=== PATIENT | female | born 1945 | race Caucasian/White ===

== ENCOUNTER → 2017-09-08 10:01 | Outpatient (CLI) | payer MEDICARE, SELFPAY ==
--- NOTE | 2017-09-08 10:05 | RAD_ITS ---
STUDY: X-RAY - RIGHT KNEE REASON FOR EXAM: Female, 72 years old. Pain TECHNIQUE: Three view(s) of the knee were obtained. COMPARISON: None. FINDINGS: The distal femur is unremarkable. The proximal tibia is unremarkable. There is mild narrowing of the medial femorotibial compartment. Normal lateral femorotibial compartment. Normal patellofemoral articulation. There is minimal fullness above the patella. There is a small calcification adjacent to the medial femoral condyle which can be seen after prior injury to the medial collateral ligament. RAD/Knee 3 Views IMPRESSION: There are mild degenerative changes in the medial compartment of the right knee. There is a small joint effusion. Electronically Signed: Yolanda Dumont MD at 22:31 EDT Tel Direct: [phone], Service support ,
== END ==
PROVIDERS: Family Provider Internal Medicine; PCP Internal Medicine; Visit Provider Internal Medicine
DX: M17.11 Unilateral primary osteoarthritis, right knee (principal)
CPT/HCPCS: 73562

== ENCOUNTER 2017-10-01 09:30 | Outpatient (RCR) | payer MEDICARE, SELFPAY ==
--- NOTE | 2017-09-09 11:47 | HP.PTEVAL_ITS ---
Patient's Visit Information STANISLAW ALEMAN is a 72 year old F referred to Physical Therapy by Yvonne Velez with a diagnosis of Right Knee Pain. Date of Evaluation: 09/09/17 Physical Therapist: Nessa Ziegler - Visit Plan Frequency: 2x /Week Duration: 4 Weeks Plan: Focus on LE ROM, strength, and muscular endurnace with functional mobility - modalities PRN - Subjective Subjective: Patient reports the right knee has been bothering her for about a month- no specific injury thinks that she might have bothered it while standing on a bank using a push mower. Pain is located on the medial side of the knee along the posterior aspect and into thigh area both anterior and posterior. Saw MD yesterday and gave her an injection in the thigh and had an x-ray taken. The x-ray showed that she has mild OA in the medial compartment of the knee. Was taking Tylenol which gave her a kidney infection. Describes the knee pain as ?just painful?. Worst: 01/27 Agg: everything- rolling over in bed, walking, stairs anything Eases: heating pad Best: 11/27. First time with knee pain/ problems. Has had back pain before and saw a chiropractor and it made it better. Does have stairs to do laundry in the basement. No N/T in the toes but does have numbness in the anterior quad muscle. PMHx: high cholesterol Meds : D3 50,000 units. - Objective Posture: FH, RS, Increased kyphosis. Gait: antalgic- poor heel/toe pattern secondary to poor ROM- decreased stance on the right LE. Stairs:asc/desc 8 stairs recip with 1 HR and uses UE A- poor control. HR/TR: able but reports pulling. SLS: 5 sec then LOB and uses UE for balance. Palpation: tender along superior medial joint line, quad lateral and anterior. ROM: 10-125 degrees with pain at end ranges. Strength: Ankle: 5/5, Knee: 5/5 with pain in available range, Hip: 4/5 throughout with pain IR/ER in sitting. McMurrays: negative, Gapping of the medial joint decreases pain. Flex: hamstring: moderate , gastroc: moderate - Goals Goal 1:: Patient will be I with HEP and progression Goal Time Frame: 4-6 Weeks Goal 2:: Patient will demo 0-125 degrees of ROM with 0/10 pain and no pulling Goal Time Frame: 4-6 Weeks Goal 3:: Patient will ambulate >300 feet with a normalized gait pattern Goal Time Frame: 4-6 Weeks Goal 4:: Patient will asc/desc 8 stairs recip with 1 HR and good control Goal Time Frame: 4-6 Weeks - Rehabilitation Potential Physical Therapy Diagnosis: Patient presents with hypomobility- she has decreased ROM, strength, flexibility and muscular endurance leading to abnormal gait and increased pain with ADL's. Rehabilitation Potential: Fair - Anticipated Interventions Patient/Client Instruction: Educate patient on: Benefits of Fitness Program For the Purpose of:: To increase tolerance to activity/condition/position Therapeutic Exercise to Include: Strength training, Endurance training, Balance training, Body mechanics, Postural training, Flexibilty training, Gait and locomotor training, Dynamic Lumbar Stabilization For the Purpose of:: To improve muscle performance and motor function TENS: Yes Cryotherapy (ice pack, ice massage): Yes Thermo therapy (hot pack): Yes Ultrasound (thermal/non thermal): Yes For the Purpose of:: To decrease pain Thank you for the opportunity to evaluate your patient. For Medicare and Medicare HMO plans, please review the plan of care and approve it. It will need to be FAXED BACK to us at [phone] for Medicare purposes. Please let me know if there are questions or concerns regarding this plan of care. Physician Signature: Date:
--- NOTE | 2017-10-07 10:34 | HP.PTDCSUM_ITS ---
HP - PT D/C Summary It has been my pleasure to treat STANISLAW ALEMAN under orders from Yvonne Velez, for the diagnosis of Right Knee Pain for a total of 4 visit(s). Discharge Date: Please see the following information for a summary of their discharge status. - Subjective Subjective: Patient reports that the pain in her knee is gone- she is happy wtih the results but is unsure if they will last. DOes not feel she needs PT anymore. - Overall Improvement % Improvement: 100 - Objective Objective/Function: Posture: FH, RS, Increased kyphosis. Gait: normal. Stairs: asc/desc 8 stairs recip with 1 HR. HR/TR: able SLS: 10 sec then LOB and uses UE for balance. Palpation: not tender. ROM: 10-125 degrees. Strength: Ankle: 5/5, Knee: 5/5, Hip: 4+/5 throughout. McMurrays: negative, Gapping of the medial joint decreases pain. Flex: hamstring: moderate, gastroc: moderate - Goals Goal 1:: Patient will be I with HEP and progression Goal Progress: Goal Met Goal 2:: Patient will demo 0-125 degrees of ROM with 0/10 pain and no pulling Goal Progress: Goal Met Goal 3:: Patient will ambulate >300 feet with a normalized gait pattern Goal Progress: Goal Met Goal 4:: Patient will asc/desc 8 stairs recip with 1 HR and good control Goal Progress: Goal Met - Plan Plan: Discharge to I HEP - D/C Information If there are questions or concerns regarding this patient's physical therapy, please feel free to call me at [phone]. Thank you for the referral of this patient. Sincerely, Nessa Ziegler
== END 2017-10-01 19:00 | disposition home or self-care (01) ==
LOC: PT 09:30
PROVIDERS: Family Provider Internal Medicine; PCP Internal Medicine; Visit Provider Internal Medicine
DX: M62.89 Other specified disorders of muscle (principal); M76.31 Iliotibial band syndrome, right leg; M25.561 Pain in right knee
CPT/HCPCS: 97035; 97110; 97161

== ENCOUNTER → 2018-03-05 10:18 | Outpatient (CLI) | payer MEDICARE, SELFPAY ==
--- NOTE | 2018-03-05 10:23 | BI_ITS ---
MAMMOGRAPHY - BILATERAL SCREENING REASON FOR EXAM: Female, 72 years old. Routine annual screening examination. PERTINENT HISTORY: Sister with breast cancer. TECHNIQUE: Digital bilateral breast teddy (3D mammographic acquisition) in the CC and MLO projections. 2-D mediolateral oblique (MLO) and craniocaudad (CC) views of both breasts were obtained. CAD: Full Field Digital Mammography with Computer Added Detection was performed. COMPARISON: Comparison is made with prior study dated February 17, 2017 and February 15, 2016. FINDINGS: Breast Composition: The breasts are heterogeneously dense, which may obscure small masses. There are no dominant masses or suspicious calcifications. No other significant abnormalities are identified. There has been no significant change since the prior study. BI/SCREENING MAMM (CAD), BILAT IMPRESSION: Stable bilateral screening mammogram. Yearly follow-up mammogram recommended. (A) ASSESSMENT CATEGORY: BIRADS Category 1: Negative. A letter regarding these results will be sent to the patient by the facility within 30 days. Approximately 10% of breast cancers are not detected by mammography. A normal mammogram should not delay biopsy of a clinically suspicious abnormality. [id number] Electronically Signed: Tawanda Weems MD at 9:35 EST Tel [phone], Service support ,
== END ==
PROVIDERS: Family Provider Internal Medicine; PCP Internal Medicine; Referring Provider Internal Medicine; Visit Provider Internal Medicine
DX: Z12.31 Encounter for screening mammogram for malignant neoplasm of breast (principal)
CPT/HCPCS: 77063; 77067

== ENCOUNTER 2018-06-15 14:00 | Outpatient (RCR) | payer MEDICARE, SELFPAY ==
--- NOTE | 2018-06-15 15:55 | HP.PTEVAL_ITS ---
Patient's Visit Information STANISLAW ALEMAN is a 73 year old F referred to Physical Therapy by Yvonne Velez DO with a diagnosis of R knee bursitis. Date of Evaluation: 04/30/18 Physical Therapist: John Paul Mcqueen DPT - Visit Plan Frequency: 1x/Week Duration: 4-6 Weeks Plan: Start with modalities to reduce symptoms, add in ROM, stretching. Progress to quad/glute med/HS activation and functional strengthening if tolerated. If pt. does not progress I would recommend to follow back up with physician or ortho again. - Subjective Findings: Pt is here today for her initial evaluation with diagnosis of R knee bursitis. Pt. reports having increased R knee pain for ~ 1 year, but did have a period where she was feeling much better. Increases pain: walking, standing, stairs, twisting, driving. Decreases Pain: nothing. Pt. reports haing some mild N/T at her anterior thigh at times. Pt. was recommended to have an MRI by an ortho, but was denies, ~ 6 months ago. Pt. has trialed injections without relief. She did have relief with strengthening exercises previously, but is not having increased pain and exercises seem to make it work. Pt. reports pain at anterior knee, posterior knee, medial popliteal fossa. Pt. reports no sudden weakness in either LE. Pt. did have xrays showing OA in R knee. Pt. is hopeful to reduce symptoms in order to get back to all recreational activiteis without limitations. - Pain R knee Pain Intensity (Out of 10): 4 Pain Intensity Range: 2, 8 - Objective POSTURE: Pt. lacks R TKE, increased L wt. shift. Pt. has slight flexed posture in stance. Pt. has no lumbar lateral shift. PALAPTION: Pt. has increased pain at medial joint line, medial aspect of popliteal fossa. Pt. has no lateral pain. Pt has some pain at pes anserine pain and some pre patellar bursa pain. NEURO: No issues with senstation and DTR bilaterally. Pt. is able to rise on heels and toes without issues. ROM: L Knee 0-0-124deg. R kne 0-5-118deg. Pt. has increased pain with end ranges of R knee ROM. LUMBAR SPINE: min loss throughout without increase in symptoms. Tight HS noted. MMT: LLE- 5/5 throughout no issues. RLE- ankle 5/5 throughout; knee- ext 4/5 incerase NW, flexion 4/5 increase NW, hip- 4/5 throughout NE. Core strength- poor. GAIT: Pt. ambulates with lack pof TKE and increased antalgic pattern during R stance phase. STAIRS: step to pattern throughout with loading LLE only. - Goals Goal 1:: Pt. to be I with HEP. Goal Time Frame: 4-6 Weeks Goal 2:: Pt. to have incerased R knee ROM to 0-0-120deg withotu increase in symptoms. Goal Time Frame: 4-6 Weeks Goal 3:: Pt. to have increased RLE strength by 1/2 grade of all effected muscles. Goal Time Frame: 4-6 Weeks Goal 4:: Pt. to ambulate with normal pattern without incerase in symptoms. Goal Time Frame: 4-6 Weeks Goal 5:: Pt. to negotiate steps without increase in symptoms with reciprocal pattern. Goal Time Frame: 4-6 Weeks - Rehabilitation Potential Physical Therapy Diagnosis: Pt. has signs and symptoms consistent with R knee p ain. Pt. appears to have a meniscal pahtology, but difficulty to differenciate. Pt. does have pain with Freeman and Apley's testing, lacks TKE and pain and posterior medial aspect. Pt. would benefit from PT to increase ROM and increase strength in order to reduce stress applied to R knee with all functional mobility. Rehabilitation Potential: Fair - Anticipated Interventions Patient/Client Instruction: Educate patient on: Condition, Plan of Care, Risk Factors, Benefits of Fitness Program For the Purpose of:: To foster healthy habits, To improve decision making, To facilitate caregiver knowledge, To improve self management, To prevent re- injury, To improve ability to perform tasks related to life management, To improve tolerance to ADL's Therapeutic Exercise to Include: Strength training, Power training, Endurance training, Body mechanics, Postural training, Flexibilty training, Gait and locomotor training For the Purpose of:: To decrease pain, To increase ROM, To improve nutrient delivery to tissue, To increase oxygenation perfusion, To improve muscle performance and motor function, To improve gait and locomotor functions, To decrease soft tissue restriction, To increase flexibility/ROM IF ES: Yes Other electric stimulation: Yes Ultrasound (thermal/non thermal): Yes For the Purpose of:: To decrease pain, To decrease swelling/inflammation, To increase ROM, To improve nutrient delivery to tissue, To increase oxygenation perfusion, To improve muscle performance and motor function Thank you for the opportunity to evaluate your patient. For Medicare and Medicare HMO plans, please review the plan of care and approve it. It will need to be FAXED BACK to us at [phone] for Medicare purposes. For Medicare only, by signing this I certify the plan of care. Please let me know if there are questions or concerns regarding this plan of care. Physician Signature: Date:
--- NOTE | 2018-06-16 10:30 | HP.PTDCSUM ---
HP - PT D/C Summary It has been my pleasure to treat STANISLAW ALEMAN under orders from Yvonne Velez DO, for the diagnosis of R knee bursitis for a total of 5 visit(s). Discharge Date: 06/15/18 Please see the following information for a summary of their discharge status. - Subjective Subjective: Pt. reports I am still feeling sore. I am not sure if it is my back or my knee or just that I am doing a lot more. I am walking, working and doing all these chores taking care of my brother. I am just working so much. Pt. reports not being compliant with her exercises at home due to time constraits. I feel stronger, but the pain is still there. - Pain R knee Pain Intensity (Out of 10): 4 - Overall Improvement % Improvement: 40 - Objective Objective/Function: Pt. reports I am able to do the exercises, but I still have this pain. I do not seem to be making much different with my pain.. ROM- R knee 0-3-118deg. MMT: 4/5 throughout R knee, hip- flexion 4/5, abd 4/5, ext 4+/5 Core strenght- poor+. GAIT: Pt. has improved gait pattern, but continues to have increased soreness during stance phase of gait, but comes and goes. STAIRS reciprocal pattern with 2 HR noted, mild increase in symptoms. - Goals Goal 1:: Pt. to be I with HEP. Goal Progress: Goal Met Goal 2:: Pt. to have incerased R knee ROM to 0-0-120deg withotu increase in symptoms. Goal Progress: Progressing Goal 3:: Pt. to have increased RLE strength by 1/2 grade of all effected muscles. Goal Progress: Goal Met Goal 4:: Pt. to ambulate with normal pattern without incerase in symptoms. Goal Progress: Progressing Goal 5:: Pt. to negotiate steps without increase in symptoms with reciprocal pattern. Goal Progress: Goal Met - Plan Plan: Start with modalities to reduce symptoms, add in ROM, stretching. Progress to quad/glute med/HS activation and functional strengthening if tolerated. If pt. does not progress I would recommend to follow back up with physician or ortho again. - D/C Information Discharge Comments: Pt. was treated with stretching, strengthening, and US. Pt. reports being stronger and walking a little bit better, but is still troubled by her pain. Pt. could have been more consistent with her PT and is dealing with taking care of her brother, but with that being said she is still having increased pain. I would recommend that she return to her physician for re visit with ortho since MRI was recommended, but denied. If there are questions or concerns regarding this patient's physical therapy, please feel free to call me at [phone]. Thank you for the referral of this patient. Sincerely, MINERVA ArmstrongT
== END 2018-06-15 19:00 | disposition home or self-care (01) ==
LOC: PT 14:00
PROVIDERS: Family Provider Internal Medicine; PCP Internal Medicine; Referring Provider Internal Medicine; Visit Provider Internal Medicine
DX: M25.561 Pain in right knee (principal); M54.5 Low back pain
CPT/HCPCS: 97035; 97110; 97161; 97530

== ENCOUNTER → 2018-09-06 12:58 | Outpatient (CLI) | payer MEDICARE, SELFPAY ==
--- NOTE | 2018-09-06 13:05 | RAD_ITS ---
STUDY: X-RAY - RIGHT ANKLE REASON FOR EXAM: Female, 73 years old. Strain injury and medial pain TECHNIQUE: 3 view(s) of the ankle. COMPARISON: None. FINDINGS: Normal visualized distal tibia and fibula. Normal medial and lateral malleoli. Normal tibiotalar articulation and ankle mortise. Normal visualized talus and calcaneus. The visualized subtalar, talonavicular, calcaneocuboid and tarsal articulations are normal. The soft tissue structures are unremarkable. RAD/Ankle min 3 Views IMPRESSION: No acute osseous injury is evident. Electronically Signed: Elfego Borden MD at 14:12 EDT Tel , Service support ,
== END ==
PROVIDERS: Family Provider Internal Medicine; PCP Internal Medicine; Visit Provider Internal Medicine
DX: M25.571 Pain in right ankle and joints of right foot (principal)
CPT/HCPCS: 73610

== ENCOUNTER → 2019-03-10 13:03 | Outpatient (CLI) | payer MEDICARE, SELFPAY ==
--- NOTE | 2019-03-10 13:07 | BD_ITS ---
STUDY: DUAL ENERGY X-RAY ABSORPTIOMETRY / DXA REASON FOR EXAM: Female, 73 years old. Early menopause. Loss of height. TECHNIQUE: Bone Mineral Density (BMD) measurements of lumbar spine and bilateral hips were obtained. COMPARISON: Comparison is made with prior examination dated February 17, 2017. FINDINGS: Lumbar Spine (L1-L4): g/cm2 (0.793) / T-score (-3.2) / Z-score (-1.5) Findings are suggestive of osteoporosis with a high fracture risk. Left Femur Total: g/cm2 (0.640) / T-score (-2.9) / Z-score (-1.1) Left Femoral Neck: g/cm2 (0.608) / T-score (-3.1) / Z-score (-1.1) Right Femur Total: g/cm2 (0.642) / T-score (-2.9) / Z-score (-1.1) Right Femoral Neck: g/cm2 (0.657) / T-score (-2.7) / Z-score (-0.8) The T-Scores on the most recent prior examination were: Lumbar Spine (L1-L4): There has been worsening of bone density since the previous examination. Left Femur Total: which represents a worsening of 6.2%. Right Femur Total: which represents a worsening of 8.7%. BD/Dexa Bone Density Study IMPRESSION: The patient is considered osteoporotic as outlined below according to World David Organization (WHO) criteria with a high fracture risk. There has been worsening of bone density since the previous examination. Reference Information: The T-score is the number of standard deviations above or below the standard which is normal for young adults at their peak bone mineral density. The World Health Organization (WHO) interprets the T-scores as follows: Above -1 Normal bone density Between -1 and -2.5 Osteopenia Equal to / or below -2.5 Osteoporosis As a practical clinical guideline, osteopenia may be graded as follows: Mild -1 through -1.5 Moderate -1.6 through -2.0 Severe -2.1 through -2.4 The Z-score is the number of standard deviations above or below age-matched controls. A Z-score of less than -1.5 would be considered abnormal. References: 1. NIH Osteoporosis and Related Bone Diseases http://www.osteo.org 2. International Society for Clinical Densitometry http://www.iscd.org 3. National Osteoporosis Foundation http://www.nof.org Electronically Signed: Tawanda Weems, at 11:06 EST , Service support ,
--- NOTE | 2019-03-10 13:23 | BI_ITS ---
MAMMOGRAPHY - BILATERAL SCREENING REASON FOR EXAM: Female, 73 years old. Routine annual screening examination. PERTINENT HISTORY: Sister with breast cancer. TECHNIQUE: Digital bilateral breast el (3D mammographic acquisition) in the CC and MLO projections. 2-D mediolateral oblique (MLO) and craniocaudad (CC) views of both breasts were obtained. CAD: Full Field Digital Mammography with Computer Added Detection was performed. COMPARISON: Comparison is made with prior study dated March 05, 2018 and February 17, 2017. FINDINGS: Breast Composition: The breasts are heterogeneously dense, which may obscure small masses. There are no dominant masses or suspicious calcifications. No other significant abnormalities are identified. There has been no significant change since the prior study. BI/SCREEN MAMM (CAD) W/EL BILAT IMPRESSION: Stable bilateral screening mammogram. Yearly follow-up mammogram recommended. (A) ASSESSMENT CATEGORY: BIRADS Category 1: Negative. A letter regarding these results will be sent to the patient by the facility within 30 days. Approximately 10% of breast cancers are not detected by mammography. A normal mammogram should not delay biopsy of a clinically suspicious abnormality. [id number] Electronically Signed: Tawanda Weems, at 14:53 EST , Service support ,
== END ==
PROVIDERS: Family Provider Internal Medicine; PCP Internal Medicine; Referring Provider Internal Medicine; Visit Provider Internal Medicine
DX: M81.0 Age-related osteoporosis without current pathological fracture (principal); Z12.31 Encounter for screening mammogram for malignant neoplasm of breast; Z80.3 Family history of malignant neoplasm of breast
CPT/HCPCS: 77063; 77067; 77080

== ENCOUNTER → 2020-04-10 14:17 | Outpatient (CLI) | payer MEDICARE, SELFPAY ==
--- NOTE | 2020-04-10 14:19 | BI_ITS ---
MAMMOGRAPHY - BILATERAL SCREENING REASON FOR EXAM: Female, 75 years old. Routine annual screening examination. PERTINENT HISTORY: Sister with breast cancer. TECHNIQUE: Digital bilateral breast el (3D mammographic acquisition) in the CC and MLO projections. 2-D mediolateral oblique (MLO) and craniocaudad (CC) views of both breasts were obtained. CAD: Full Field Digital Mammography with Computer Added Detection was performed. COMPARISON: Comparison is made with prior study dated 03/10/2019 and 03/05/2018. FINDINGS: Breast Composition: The breasts are heterogeneously dense, which may obscure small masses. There are no dominant masses or suspicious calcifications. No other significant abnormalities are identified. There has been no significant change since the prior study. BI/SCREEN MAMM (CAD) W/EL BILAT IMPRESSION: Stable bilateral screening mammogram. Yearly follow-up mammogram recommended. (A) ASSESSMENT CATEGORY: BIRADS Category 1: Negative. A letter regarding these results will be sent to the patient by the facility within 30 days. Approximately 10% of breast cancers are not detected by mammography. A normal mammogram should not delay biopsy of a clinically suspicious abnormality. [id number] Electronically Signed: Tawanda Weems, at 15:07 EST , Service support ,
== END ==
PROVIDERS: PCP Internal Medicine; Referring Provider Internal Medicine; Visit Provider Internal Medicine
DX: Z12.31 Encounter for screening mammogram for malignant neoplasm of breast (principal); Z80.3 Family history of malignant neoplasm of breast
CPT/HCPCS: 77063; 77067

== ENCOUNTER 2020-06-21 16:45 | Outpatient (RCR) | payer MEDICARE, SELFPAY ==
[2020-06-21] MEDS: COVID-19 VACC, MRNA(PFIZER)/PF 30 MCG/0.3 ML SYRINGE IM (11:06)
[2020-07-12] MEDS: COVID-19 VACC, MRNA(PFIZER)/PF 30 MCG/0.3 ML SYRINGE IM (10:54)
== END 2020-06-21 23:59 ==
LOC: IMMUN 16:45
PROVIDERS: PCP Internal Medicine; Visit Provider Family Medicine
DX: Z23 Encounter for immunization (principal)
CPT/HCPCS: 0001A; 0002A

== ENCOUNTER → 2021-01-31 | Outpatient (CLI) | payer MEDICARE, SELFPAY ==
[2021-01-31 15:21] LABS: Potassium 4.6 mmol/L (3.5-5.1)
== END | disposition home or self-care (01) ==
LOC: LABSPEC 14:54
PROVIDERS: PCP Internal Medicine; Visit Provider Internal Medicine
DX: E87.5 Hyperkalemia (principal)
CPT/HCPCS: 84132

== ENCOUNTER 2021-06-26 16:24 | Outpatient (CLI) | payer MEDICARE, SELFPAY ==
[2021-06-26 18:08] LABS: BNP,B-Type NATRIURETIC PEPTIDE 114.2 pg/mL (0-100)
== END 2021-06-26 23:59 | disposition home or self-care (01) ==
LOC: LAB 16:25
PROVIDERS: PCP Internal Medicine; Referring Provider Internal Medicine Cardiovascular Disease; Visit Provider Internal Medicine Cardiovascular Disease
DX: R06.00 Dyspnea, unspecified (principal)
CPT/HCPCS: 36415; 83880

== ENCOUNTER 2021-07-16 06:05 | Outpatient (CLI) | payer MEDICARE, SELFPAY ==
--- NOTE | 2021-07-16 11:21 | STRESSREP_ITS ---
Stress Test Report Exercise myocardial perfusion stress test. 76-year-old lady with a history of dyspnea on exertion. Stress protocol: Resting EKG demonstrates sinus bradycardia with a rate of 52 bpm normal intervals are noted resting blood pressure is 164/70 mmHg. The patient exercised according to regular Azam protocol for total duration of 3 minutes. The maximum heart rate attained was 134 bpm which was 94% of max impact at heart rate the maximum workload was 4.6 metabolic equivalents. At rest there were no ST or T wave changes noted suggest ischemia and at peak exercise nonspecific ST changes were noted the test was terminated due to dyspnea. The peak blood pressure was 200/74 mmHg. Myocardial perfusion protocol. 11.7 mCi of technetium 99m sestamibi was injected at rest. The patient exercised according to regular Azam protocol for total duration of 3 minutes. At peak exercise 33.53 mCi of technetium 99m sestamibi was injected stress i mages were obtained stress and rest images were reconstructed and compared in the short axis vertical long horizontal long axis. Gated images were also obtained per Perfusion SPECT analysis: Review of the stress images demonstrate normal uptake of tracer noted in all areas of myocardium the resting images similarly demonstrate normal uptake of tracer noted in all areas of myocardium. No areas of reversibility are noted suggest ischemia. No previous infarct is noted. Gated SPECT analysis: The gated ejection fraction is 79%. Conclusion: Normal exercise myocardial perfusion stress test at a low workload. Preserved ejection fraction.
== END 2021-07-16 23:59 | disposition home or self-care (01) ==
PROVIDERS: PCP Internal Medicine; Referring Provider Internal Medicine Cardiovascular Disease; Visit Provider Internal Medicine Cardiovascular Disease
DX: R06.09 Other forms of dyspnea (principal)
CPT/HCPCS: 78452; 93017; A9500; A4216

== ENCOUNTER 2021-07-22 13:45 | Outpatient (CLI) | payer MEDICARE, SELFPAY ==
--- NOTE | 2021-07-22 13:48 | ECHOD_ITS ---
Reason For Study: DYSPNEA/SOB Procedure This was a 2D Doppler, Color Flow transthoracic echocardiogram. Exam performed in department. Left Ventricle Normal LV size. Left ventricular systolic function is normal. The estimated ejection fraction is 60 %. Stage 2 diastolic dysfunction. No regional wall motion abnormalities noted. Right Ventricle Normal RV size. Normal systolic function. Atria Normal left atrium. Normal right atrium. Mitral Valve Normal mitral valve. Tricuspid Valve Normal tricuspid valve. Mild (1+) tricuspid valve insufficiency. Pulmonary artery systolic pressure is 30 mmHg. Aortic Valve Trisinus/trileaflet aortic valve. Pulmonic Valve Normal pulmonic valve. Great Vessels Normal aortic root. The pulmonary artery is normal size. Normal inferior vena cava. Pericardium/Pleural No pericardial effusion. MMode/2D Measurements & Calculations LVIDd: 4.2 cm IVSd: 0.82 cm Ao root diam: 3.0 cm LVIDs: 2.5 cm LVPWd: 0.87 cm RVDd: 3.3 cm FS: 41.4 % LAV(MOD-bp): 34.7 ml LVAd ap4: 22.9 cm2 SV(MOD-sp4): 37.8 ml LAV(MOD-bp) Indexed: 19.5 ml/m2 LVLd ap4: 6.7 cm LAV(MOD-sp2): 32.9 ml EDV(MOD-sp4): 63.0 ml LAV(MOD-sp4): 37.0 ml EDV(sp4-el): 67.1 ml LVAs ap4: 12.6 cm2 LVLs ap4: 5.4 cm ESV(MOD-sp4): 25.2 ml ESV(sp4-el): 25.0 ml EF(MOD-sp4): 60.0 % EF(sp4-el): 62.7 % SV(sp4-el): 42.1 ml LA A4 area: 15.6 cm2 LA dimension(2D): 3.1 cm RA A4 area: 15.7 cm2 Time Measurements MV dec time: 0.22 sec Doppler Measurements & Calculations MV E max sai: 77.8 cm/sec Lat Peak E' Sai: 10.2 cm/sec Med Peak E' Sai: 6.9 cm/sec MV A max sai: 72.9 cm/sec E/E' lat: 7.6 E/E' med: 11.3 MV E/A: 1.1 Ao V2 max: 152.1 cm/sec LV V1 max: 138.5 cm/sec PA V2 max: 88.4 cm/sec Ao max P.2 mmHg LV V1 max P.7 mmHg TR max sai: 260.0 cm/sec TR max P.1 mmHg ECHO/Echo Complete Interpretation Summary Normal LV size. Left ventricular systolic function is normal. The estimated ejection fraction is 60 %. Stage 2 diastolic dysfunction. Mild (1+) tricuspid valve insufficiency. Ordering Physician: Parth Kidd Referring Physician: YOMI BOWSER Performed By: Ann Peñaloza RDCS
== END 2021-07-22 23:59 | disposition home or self-care (01) ==
LOC: CVS 13:46
PROVIDERS: PCP Internal Medicine; Referring Provider Internal Medicine Cardiovascular Disease; Visit Provider Internal Medicine Cardiovascular Disease
DX: R94.31 Abnormal electrocardiogram [ECG] [EKG] (principal); R06.02 Shortness of breath
CPT/HCPCS: 93306

== ENCOUNTER → 2021-08-09 | Outpatient (CLI) | payer MEDICARE, SELFPAY ==
[2021-08-09 09:26] LABS: Albumin, Serum 3.8 g/dL (3.2-5.0); BUN 19 mg/dL (7-18); Creatinine, Serum 1.19 mg/dL (0.55-1.02); EST Glomerular Filtration Rate 47 mL/min (>60); Est Glom Filt Rate - Afr Amer 56 mL/min (>60); Glucose 92 mg/dL (74-106); Protein, Total 7.7 g/dL (6.4-8.2)
[2021-08-09 09:27] LABS: Vitamin D,25 Hydroxy 73.3 ng/mL
[2021-08-09 09:27] LABS: AST(SGOT) 20 U/L (15-37); Alanine Aminotransfer ALT/SGPT 24 U/L (13-56); Alkaline Phosphatase 71 U/L (45-117); Anion Gap 5 (5-15); Bilirubin, Direct 0.18 mg/dL (0.00-0.30); Calcium,Total 9.5 mg/dL (8.5-10.1); Chloride 104 mmol/L (98-107); Cholesterol 196 mg/dL (200); Globulin 3.9 g/dL (2.2-4.2); High Density Lipoprotein 67 mg/dL; Sodium Level 138 mmol/L (136-145); Triglycerides 127 mg/dL; Very Low Density Lipoprotein 25 mg/dL (5-40)
== END | disposition home or self-care (01) ==
LOC: LAB 08:15
PROVIDERS: PCP Internal Medicine; Referring Provider Internal Medicine Cardiovascular Disease; Visit Provider Internal Medicine Cardiovascular Disease
DX: E78.5 Hyperlipidemia, unspecified (principal); E55.9 Vitamin D deficiency, unspecified
CPT/HCPCS: 36415; 80048; 80061; 80076; 82306

== ENCOUNTER → 2022-03-18 | Outpatient (CLI) | payer MEDICARE, SELFPAY ==
[2022-03-18 12:27] LABS: Anion Gap 7 (5-15); BUN 15 mg/dL (7-18); BUN/Creat Ratio 13.8 RATIO (10-20); Calcium,Total 9.1 mg/dL (8.5-10.1); Chloride 102 mmol/L (98-107); Creatinine, Serum 1.09 mg/dL (0.55-1.02); EST Glomerular Filtration Rate 52 mL/min (>60); Est Glom Filt Rate - Afr Amer 62 mL/min (>60); Glucose 96 mg/dL (74-106); Potassium 4.4 mmol/L (3.5-5.1); Sodium Level 137 mmol/L (136-145)
[2022-03-18 12:40] LABS: AST(SGOT) 18 U/L (15-37); Alanine Aminotransfer ALT/SGPT 25 U/L (13-56); Albumin, Serum 3.8 g/dL (3.2-5.0); Alkaline Phosphatase 79 U/L (45-117); Bilirubin, Direct 0.14 mg/dL (0.00-0.30); Globulin 3.8 g/dL (2.2-4.2); Protein, Total 7.6 g/dL (6.4-8.2)
== END | disposition home or self-care (01) ==
LOC: LAB 11:43
PROVIDERS: Internal Medicine Cardiovascular Disease; PCP Internal Medicine; Referring Provider Nurse Practitioner Family; Visit Provider Nurse Practitioner Family
DX: E78.00 Pure hypercholesterolemia, unspecified (principal); I10 Essential (primary) hypertension
CPT/HCPCS: 36415; 80048; 80076

== ENCOUNTER → 2022-05-06 | Outpatient (CLI) | payer MEDICARE, SELFPAY ==
--- NOTE | 2022-05-06 12:18 | BI_ITS ---
MAMMOGRAPHY - BILATERAL SCREENING REASON FOR EXAM: Female, 77 years old. Routine annual screening examination. PERTINENT HISTORY: Sister with breast cancer. TECHNIQUE: Digital bilateral breast el (3D mammographic acquisition) in the CC and MLO projections. 2-D mediolateral oblique (MLO) and craniocaudad (CC) views of both breasts were obtained. CAD: Full Field Digital Mammography with Computer Added Detection was performed. COMPARISON: Comparison is made with prior study dated 04/10/2020 and 03/10/2019. FINDINGS: Breast Composition: The breasts are heterogeneously dense, which may obscure small masses. There are no dominant masses or suspicious calcifications. No other significant abnormalities are identified. There has been no significant change since the prior study. BI/SCRN MAMM (CAD)W/EL BILAT IMPRESSION: Stable bilateral screening mammogram. Yearly follow-up mammogram recommended. (A) ASSESSMENT CATEGORY: BIRADS Category 1: Negative. A letter regarding these results will be sent to the patient by the facility within 30 days. Approximately 10% of breast cancers are not detected by mammography. A normal mammogram should not delay biopsy of a clinically suspicious abnormality. [id number] Electronically Signed: Tawanda Weems MD at 13:18 EST ,
--- NOTE | 2022-05-06 12:24 | BD_ITS ---
STUDY: DUAL ENERGY X-RAY ABSORPTIOMETRY / DXA REASON FOR EXAM: Female, 77 years old. [id number] TECHNIQUE: Bone Mineral Density (BMD) measurements of lumbar spine and bilateral hips were obtained. COMPARISON: Comparison is made with prior study 03/10/2019. FINDINGS: Lumbar Spine (L1-L4): g/cm2 (0.634) / T-score (-3.8) / Z-score (-1.2) Findings are suggestive of osteoporosis with a high fracture risk. Left Femur Total: g/cm2 (0.622) / T-score (-2.6) / Z-score (-0.6) Left Femoral Neck: g/cm2 (0.476) / T-score (-3.4) / Z-score (-1.1) Right Femur Total: g/cm2 (0.653) / T-score (-2.4) / Z-score (-0.4) Right Femoral Neck: g/cm2 (0.556) / T-score (-2.6) / Z-score (-0.4) The T-Scores on the most recent prior examination were: Lumbar Spine (L1-L4): There has been worsening of bone density since the previous examination. Left Femur Total: which represents an improvement of 6.5%. Right Femur Total: which represents an improvement of 11.3%. BD/Dexa Bone Density Study IMPRESSION: The patient is considered osteoporotic as outlined below according to World David Organization (WHO) criteria with a high fracture risk. There has been improvement of bone density since the previous examination. Reference Information: The T-score is the number of standard deviations above or below the standard which is normal for young adults at their peak bone mineral density. The World Health Organization (WHO) interprets the T-scores as follows: Above -1 Normal bone density Between -1 and -2.5 Osteopenia Equal to / or below -2.5 Osteoporosis As a practical clinical guideline, osteopenia may be graded as follows: Mild -1 through -1.5 Moderate -1.6 through -2.0 Severe -2.1 through -2.4 The Z-score is the number of standard deviations above or below age-matched controls. A Z-score of less than -1.5 would be considered abnormal. References: 1. NIH Osteoporosis and Related Bone Diseases www osteo.org 2. International Society for Clinical Densitometry www iscd.org 3. National Osteoporosis Foundation www nof.org Electronically Signed: Tawanda Weems MD at 12:45 EST ,
== END | disposition home or self-care (01) ==
LOC: OPBD 12:14
PROVIDERS: PCP Internal Medicine; Referring Provider Internal Medicine; Visit Provider Internal Medicine
DX: Z78.0 Asymptomatic menopausal state (principal); Z12.31 Encounter for screening mammogram for malignant neoplasm of breast
CPT/HCPCS: 77063; 77067; 77080

== ENCOUNTER → 2022-10-15 | Outpatient (CLI) | payer MEDICARE, SELFPAY ==
[2022-10-15 15:12] LABS: Anion Gap 3 (5-15); BUN 27 mg/dL (7-18); BUN/Creat Ratio 18.9 RATIO (10-20); Calcium,Total 9.7 mg/dL (8.5-10.1); Chloride 107 mmol/L (98-107); Creatinine, Serum 1.43 mg/dL (0.55-1.02); EST Glomerular Filtration Rate 38 mL/min (>60); Est Glom Filt Rate - Afr Amer 46 mL/min (>60); Glucose 94 mg/dL (74-106); Potassium 5.1 mmol/L (3.5-5.1); Sodium Level 136 mmol/L (136-145)
== END | disposition home or self-care (01) ==
LOC: LAB 13:58
PROVIDERS: PCP Internal Medicine; Referring Provider Nurse Practitioner Family; Visit Provider Nurse Practitioner Family
DX: R06.09 Other forms of dyspnea (principal); I11.9 Hypertensive heart disease without heart failure
CPT/HCPCS: 36415; 80048

== ENCOUNTER → 2022-11-28 | Outpatient (CLI) | payer MEDICARE, SELFPAY ==
--- NOTE | 2022-11-28 09:09 | US_ITS ---
STUDY: ABDOMINAL ULTRASOUND REASON FOR EXAM: Female, 77 years old. Elevated liver function tests TECHNIQUE: Transabdominal ultrasound was performed with real-time and static linares scale imaging. TECHNICAL QUALITY: Adequate. COMPARISON: Comparison is made with prior study December 11, 2015. FINDINGS: Liver: The liver measures 13.3 cm. There is normal echogenicity of the liver. The bile ducts are within normal limits. There is hepatic color flow. The direction of portal flow is hepatopetal. There is no demonstrated mass lesion. Gallbladder: Normal distended gallbladder. The gallbladder wall measures 2.1 mm. There is a negative sonographic Reid''s sign. There is no pericholecystic fluid. There are no gallstones. Common Bile Duct (C.B.D.): The common bile duct measures 2.1 mm. Pancreas: Normal size of the head, body and tail of the pancreas. There is increased echogenicity of the pancreas. There is no demonstrated pancreatic mass or cyst. Spleen: Normal size of the spleen. The spleen measures 8.6 cm x 7.5 cm x 2.9 cm. Right Kidney: Normal size of the right kidney. The right kidney measures 10.1 cm x 5.4 cm x 4.1 cm. Normal renal cortex. The right cortex measures 1.0 cm. There is no demonstrated renal mass or cyst. There is no right hydronephrosis. Left Kidney: Normal size of the left kidney. The left kidney measures 10.6 cm x 4.4 cm x 3.9 cm. Normal renal cortex. The left cortex measures 1.0 cm. There is no demonstrated renal mass or cyst. There is no left hydronephrosis. Aorta: Unremarkable I.V.C.: The IVC is patent. There is no ascites. US/Abdomen Complete IMPRESSION: Normal abdominal ultrasound examination. Electronically Signed: Tawanda Weems MD at 10:46 EDT ,
== END | disposition home or self-care (01) ==
PROVIDERS: PCP Internal Medicine; Referring Provider Internal Medicine; Visit Provider Internal Medicine
DX: R94.5 Abnormal results of liver function studies (principal)
CPT/HCPCS: 76700

== ENCOUNTER → 2023-07-20 | Outpatient (CLI) | payer MEDICARE, SELFPAY ==
--- NOTE | 2023-07-20 12:31 | BI_ITS ---
MAMMOGRAPHY - BILATERAL SCREENING REASON FOR EXAM: Female, 78 years old. Routine annual screening examination. PERTINENT HISTORY: Sister with breast cancer. TECHNIQUE: Digital bilateral breast el (3D mammographic acquisition) in the CC and MLO projections. 2-D mediolateral oblique (MLO) and craniocaudad (CC) views of both breasts were obtained. CAD: Full Field Digital Mammography with Computer Added Detection was performed. COMPARISON: Comparison is made with prior study dated November 03, 2022 and April 10, 2020. FINDINGS: Breast Composition: The breasts are heterogeneously dense, which may obscure small masses. There are no dominant masses or suspicious calcifications. Benign-appearing bilateral axillary lymph nodes. No other significant abnormalities are identified. There has been no significant change since the prior study. BI/SCRN MAMM (CAD)W/EL BILAT IMPRESSION: Stable bilateral screening mammogram. Yearly follow-up mammogram recommended. (A) ASSESSMENT CATEGORY: BIRADS Category 2: Benign. A letter regarding these results will be sent to the patient by the facility within 30 days. Approximately 10% of breast cancers are not detected by mammography. A normal mammogram should not delay biopsy of a clinically suspicious abnormality. [id number] Electronically Signed: Tawanda Weems MD at 9:32 EDT ,
== END | disposition home or self-care (01) ==
LOC: OPBI 12:31
PROVIDERS: PCP Internal Medicine; Referring Provider Internal Medicine; Visit Provider Internal Medicine
DX: Z12.31 Encounter for screening mammogram for malignant neoplasm of breast (principal); Z80.3 Family history of malignant neoplasm of breast
CPT/HCPCS: 77063; 77067

== ENCOUNTER 2023-10-04 12:10 | Emergency (ER) | payer MEDICARE, SELFPAY ==
[2023-10-04 12:10] VITALS: BP 172/58; PULSE 77; RESP 16; TEMP 36.5; O2SAT 98; BMI 30.2
--- NOTE | 2023-10-04 12:38 | EDS_ITS ---
HPI History of Present Illness HPI Narrative: 78-year-old female with stray cat that she feeds yesterday wrapped on her right lower leg and calf and scratched her multiple times possibly bit her also. This occurred around 8 PM last night. Denies any complaints. Came in to have a tetanus updated in 1 to see if it needed any treatment to prevent infection. Chief Complaint: Bite Informant: patient Occured/Mechanism Mechanism/Context: Yes injury Comment: Cat scratch and bite right lower leg. Onset/Context/Timing Onset: Yesterday Context: Sudden Onset Timing: Continuous Quality of Pain: Dull Current Severity: Mild Maximum Severity: Mild Narrative Narrative: 78-year-old cat scratch and bite right lower leg yesterday. Animal was acting normally. Tetanus Immunization: Unknown Prior similar symptoms: No Recent Illness/Hospitalization: No ROS ROS ED ROS Narrative Denies recent illness. Denies fever or chills. Review of Systems ROS Unobtainable: Denies due to encephalopathy Constitutional Constitutional ED: Denies chills or fever(s) Eyes Eyes: Denies blurry vision ENT ENT ED: Denies ear pain Cardiovascular Cardiovascular: Denies chest pain Respiratory/Chest Respiratory/Chest: Denies cough or dyspnea Gastrointestinal Gastrointestinal: Denies abdominal pain Genitourinary Genitourinary ED: Denies dysuria Musculoskeletal Musculoskeletal: Denies arthralgias Integumentary Denies abscess Neurologic Neurologic: Denies headache(s) Psychiatric Psychiatric: Denies anxiety Endocrine Endocrinology: Denies polydipsia Hematologic/Lymphatic Hematologic/Lymphatic: Denies easy bleeding Allergic/Immunologic Allergic/Immunologic ED: Denies mouth swelling or tongue swelling PFSH PFS Medical History Left ventricular diastolic dysfunction Essential hypertension Obesity Osteoporosis Anxiety Hyperlipidemia Home Medications ?Medication ?Instructions ?Recorded ?Last Taken ?Type cholecalciferol (vitamin D3) 1,250 1,250 mcg PO QWEEK 03/04/22 Unknown History mcg (50,000 unit) capsule simvastatin 40 mg tablet 20 mg PO QHS 03/04/22 Unknown History furosemide 40 mg tablet 40 mg PO .PRN PRN edema #30 tabs 10/01/22 Unknown Rx losartan 50 mg tablet 25 mg (1/2 x 50 mg) PO DAILY #90 10/30/22 Unknown Rx tabs multivitamin 1 tab PO DAILY 04/02/23 Unknown History amoxicillin 875 mg-potassium 1 tab PO BID #14 tabs 10/04/23 Unknown Rx clavulanate 125 mg tablet Allergy/AdvReac Type Severity Reaction Status Date / Time ibuprofen Allergy Anaphylaxis Verified 10/04/23 12:13 Iodinated Contrast Media Allergy seizure Verified 10/04/23 12:13 sulfamethoxazole (From AdvReac thrush, Verified 10/04/23 12:13 Bactrim) muscle pain trimethoprim (From Bactrim) AdvReac thrush, Verified 10/04/23 12:13 muscle pain Family History Other Breast cancer Cancer Lung cancer Surgical History History of hysterectomy History of tonsillectomy Social History adopted: No Smoking Status: Former smoker how long ago did patient quit smoking: approx 35 years ago alcohol intake: never substance use type: does not use caffeine: Yes Type: coffee Number of servings: 1 EXAM Physical Exam Narrative Exam Narrative: 78-year-old female no acute distress vital signs stable afebrile. HEENT exam unremarkable. Lungs clear equal symmetrical. Heart regular rhythm no murmur. Rate about 75. Chest wall and ribs nontender. Abdomen soft nontender. Moving all 4 extremities. Neurovascular intact. Her right lower leg anteriorly both medially and laterally and her cath has multiple cat scratches and/or bites. Nothing appears to be infected at this time. It occurred yesterday around 8 PM. There is no cellulitis or pus. Minimally tender. No streaks. Right foot is neurovascularly intact. Otherwise exam unremarkable. Const Vital Signs: 10/04/23 12:10 Temperature 97.7 F L Temperature Source Temporal Pulse Rate 77 Respiratory Rate 16 Blood Pressure 172/58 H Blood Pressure Mean 96 Pulse Ox 98 Oxygen Delivery Method Room Air Positive well nourished and well developed; Negative for cachectic, contractures or unkempt General Appearance ED: well developed and NAD; Negative for unkempt, cachectic or contractures Nutritional Appearance: Negative for cachectic HEENT Reports moist mucous membranes normocephalic and atraumatic; Negative for trauma or tenderness Eyes PERRL and EOMs intact bilaterally General Eye ED: Negative for other Neck full ROM and no lymphadenopathy General: Negative for tenderness Resp normal respiratory effort and clear to auscultation bilaterally Effort and Inspection: Negative for other Auscultation: Negative for rales, rhonchi or wheezes Cardio regular rate, regular rhythm, S1 normal heart sound, S2 normal heart sound and no murmurs Jugular Venous Distention: Negative for other Rate: Negative for bradycardia or tachycardic Rhythm: Negative for abnormal rhythm GI non-tender, non-distended and no masses Inspection: Negative for abdominal distention Auscultation: normoactive bowel sounds Palpation: soft; Negative for tender, guarding or rebound tenderness present Bladder / Kidney Exam: No CVA tenderness Back/Spine no CVA tenderness General Back: Negative for CVA tenderness Cervical Spine: Negative for cervical spine tenderness Thoracic Spine / Upper Back: Negative for thoracic spinal tenderness Extremity full ROM; Negative for normal to inspection Extremity Narrative: Multiple cat scratches and/or bites right anterior lower leg and calf. No cellulitis. No pus. No crepitance. No streaks. No signs of current infection. General Extremety ED: Negative for deformity or edema General Extremity: Negative for deformity or edema Neuro oriented x3 and CN's II-XII intact bilaterally Sensorium / Orientation: alert, oriented to person, oriented to place and oriented to time; Negative for orientation impaired, confused or lethargic Motor Exam: strength 5/5 throughout Psych mental status grossly normal and thought process normal Appearance: Negative for unkempt Attitude: No agitated Mood & Affect: Negative for anxious Skin skin turgor normal Lesions: no lesions Rashes: no rashes MDM MDM MDM Narrative Medical decision making narrative: Thank you 78-year-old was scratched and/or bit by a stray cat that she knows and was acting normally yesterday. Her tetanus will be updated and she will be started on Augmentin 875 twice daily for 7 days. First dose given in the ER. Currently there is no signs of infection. Discharge Plan Triage Chief Complaint: Bite ED Provider: Laureano Sheridan Dx/Rx/DC Orders Clinical Impression: Cat bite, Cat scratch Instructions: ED Cat Bite Prescriptions: New amoxicillin-pot clavulanate 875-125 mg tablet 1 tab PO BID Qty: 14 0RF No Action cholecalciferol (vitamin D3) 1,250 mcg (50,000 unit) capsule 1,250 mcg PO QWEEK simvastatin 40 mg tablet 20 mg PO QHS furosemide 40 mg tablet 40 mg PO .PRN PRN (Reason: edema) Qty: 30 0RF multivitamin Tablet 1 tab PO DAILY losartan 50 mg tablet 25 mg PO DAILY Qty: 90 3RF Primary Care Provider: Yvonne Velez Referrals: Yvonne Velez DO [Primary Care Provider] - As Needed Activity Restrictions/Additional Instructions: Tetanus updated should be good for 5 at least maybe 10 years. Cat scratch and/or bite your lower leg. Currently no infection. Placed on the antibiotic Augmentin 1 pill twice a day till gone. Watch for infection such as swelling, redness, fever or pus is seen and getting worse return. Clean the area daily with soap and water. Print Language: Vietnamese Disposition Disposition: Home, Self Care
[2023-10-04] MEDS: Diphth,Pertuss(Acell),Tet Vac 0.5 ML Vial IM (12:49)
[2023-10-04] MEDS: Amox/Clavulanate 875 MG Tablet PO (12:50)
[2023-10-04 12:57] VITALS: BP 161/77; PULSE 71; RESP 16; TEMP 36.6; O2SAT 99
== END 2023-10-04 13:03 | disposition home or self-care (01) ==
LOC: ED 12:44
PROVIDERS: Emergency Provider Emergency Medicine; PCP Internal Medicine; Visit Provider Emergency Medicine
DX: S80.811A Abrasion, right lower leg, initial encounter (principal); S81.851A Open bite, right lower leg, initial encounter; Z87.891 Personal history of nicotine dependence; W55.03XA Scratched by cat, initial encounter; Z23 Encounter for immunization
CPT/HCPCS: 90471; 90715; 99283

== ENCOUNTER 2024-03-29 02:29 | Emergency (ER) | payer MEDICARE, SELFPAY ==
[2024-03-29 02:31] VITALS: BP 189/98; PULSE 77; RESP 18; TEMP 36.7; O2SAT 95; BMI 33.2
[2024-03-29 02:38] VITALS: BP 170/79
--- NOTE | 2024-03-29 03:08 | EX.ED.DYSGE1 ---
HPI History of Present Illness Chief Complaint: Hypertension Informant: patient Onset/Context/Timing Onset: Today Context: Gradual Onset Timing: Continuous Current Severity: Mild Maximum Severity: Mild Narrative Narrative: 78-year-old female history of anxiety and hypertension. On losartan 25 mg a day. She has had a recent URI. Was seen in urgent care. They told her it was a virus but they have started her on Augmentin. Tonight she felt her blood pressure was continually going up the last time she checked at home was 197/75. She spoke to her primary care physician who told her to come into the emergency department. 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 She denies vomiting or diarrhea. She denies fever. She denies any chest pain or shortness of breath. Prior similar symptoms: Yes Recent Illness/Hospitalization: No PFSH PFSH Medical History Left ventricular diastolic dysfunction Essential hypertension Obesity Osteoporosis Anxiety Hyperlipidemia Home Medications ?Medication ?Instructions ?Recorded ?Last Taken ?Type cholecalciferol (vitamin D3) 1,250 1,250 mcg PO QWEEK 03/04/22 Unknown History mcg (50,000 unit) capsule simvastatin 40 mg tablet 20 mg PO QHS 03/04/22 Unknown History furosemide 40 mg tablet 40 mg PO .PRN PRN edema #30 tabs 10/01/22 Unknown Rx amoxicillin 875 mg-potassium 1 tab PO BID 03/29/24 Unknown History clavulanate 125 mg tablet benzonatate 100 mg capsule 200 mg PO TID PRN 03/29/24 Unknown History Allergy/AdvReac Type Severity Reaction Status Date / Time ibuprofen Allergy Anaphylaxis Verified 03/29/24 02:30 Iodinated Contrast Media Allergy seizure Verified 03/29/24 02:30 sulfamethoxazole (From AdvReac thrush, Verified 03/29/24 02:30 Bactrim) muscle pain trimethoprim (From Bactrim) AdvReac thrush, Verified 03/29/24 02:30 muscle pain Family History Other Breast cancer Cancer Lung cancer Surgical History History of hysterectomy History of tonsillectomy Social History adopted: No Smoking Status: Former smoker how long ago did patient quit smoking: approx 35 years ago alcohol intake: never substance use type: does not use caffeine: Yes Type: coffee Number of servings: 1 ROS ROS ED ROS Narrative Viral URI. Mild laryngitis. Recent cough. Constitutional Constitutional ED: Denies chills or fever(s) Eyes Eyes: Denies blurry vision ENT ENT ED: Reports sore throat; Denies ear pain Cardiovascular Cardiovascular: Denies chest pain Respiratory/Chest Respiratory/Chest: Reports cough; Denies dyspnea or dyspnea on exertion Gastrointestinal Gastrointestinal: Denies abdominal pain, diarrhea, nausea or vomiting Genitourinary Genitourinary ED: Denies dysuria or hematuria Musculoskeletal Musculoskeletal: Denies arthralgias Integumentary Denies abscess Neurologic Neurologic: Denies headache(s) Psychiatric Psychiatric: Reports anxiety Endocrine Endocrinology: Denies cold intolerance Hematologic/Lymphatic Hematologic/Lymphatic: Reports none Allergic/Immunologic Allergic/Immunologic ED: Denies mouth swelling, tongue swelling or urticaria EXAM Physical Exam Narrative Exam Narrative: Well-appearing 78-year-old female. Initial blood pressure 89/98. When I was examining her in the room at 3:05 AM her blood pressure was 156/69. She is in no distress. H EENT exam posterior pharynx normal. She has mild laryngitis. Neck nontender JVD. No lymphadenopathy. Lungs clear to auscultation bilateral. Heart regular rate and rhythm rate about 80 no murmur. Chest wall ribs unremarkable. Abdomen soft nontender. Moving all 4 extremities. 5 out of 5 regional wildlife agent strength. Dorsi plantarflexion intact. Calves nontender without edema or cords. Neurologically she is awake and alert. Answering questions following commands. NIH score 0. Const Vital Signs: 03/29/24 02:31 03/29/24 02:37 03/29/24 02:38 Temperature 98.0 F Temperature Source Oral Pulse Rate 77 Respiratory Rate 18 Respiratory Effort Normal Non-Labored Respiratory Pattern Normal Blood Pressure 189/98 H 170/79 H Blood Pressure Mean 128 109 Pulse Ox 95 Oxygen Delivery Method Room Air Positive well nourished and well developed; Negative for obese, cachectic, contractures or unkempt General Appearance ED: well developed and NAD; Negative for unkempt, cachectic, contractures, cyanotic, diaphoretic or pallor Nutritional Appearance: Negative for cachectic or obese HEENT Reports moist mucous membranes Negative for trauma or tenderness Eyes PERRL and EOMs intact bilaterally General Eye ED: Negative for pale conjunctiva or scleral icterus Neck no lymphadenopathy, supple and no JVD General: Negative for tenderness Chest Wall inspection of chest normal and palpation of chest normal Chest: Negative for other Resp normal respiratory effort and clear to auscultation bilaterally Effort and Inspection: Negative for retractions Auscultation: Negative for rales, rhonchi, wheezes or diminished lung sounds Cardio regular rate, regular rhythm, S1 normal heart sound, S2 normal heart sound and no murmurs Rhythm: Negative for abnormal rhythm GI normal to inspection, nondistended, normoactive bowel sounds, non-tender, non-distended and no masses Palpation: soft; Negative for tender, guarding or rebound tenderness present Back/Spine no CVA tenderness General Back: Negative for CVA tenderness Cervical Spine: Negative for cervical spine tenderness Thoracic Spine / Upper Back: Negative for thoracic spinal tenderness or paraspinal muscle tenderness Lumbar Spine / Lower Back: Negative for lumbar spinal tenderness Extremity normal to inspection General Extremety ED: Negative for edema or tenderness General Extremity: Negative for edema Neuro oriented x3 and CN's II-XII intact bilaterally Sensorium / Orientation: alert; Negative for orientation impaired, lethargic or stuporous Motor Exam: strength 5/5 throughout Psych mental status grossly normal Appearance: Negative for unkempt Attitude: No agitated Mood & Affect: Negative for depressed, anxious or tearful Skin no rashes or lesions noted, no wounds and skin turgor normal General Skin Exam: elasticity normal; Negative for jaundice or pallor Lesions: No lesion noted Rashes: No rashes noted Trauma: Negative for abrasion Wounds: Negative for wounds noted MDM MDM MDM Narrative Medical decision making narrative: 6-year-old with acute on chronic hypertension with a current blood pressure of 156/69. She does not need it lowered emergently. She has a viral URI. She does not need any workup. Her exam is normal. She can stop the antibiotic the urgent care put her on. Take her blood pressure medications as prescribed. Follow-up with her primary care physician. History & Record Review Discussion w/independent historian: Patient Additional record(s) reviewed:: Prior inpatient record, Prior outpatient record, Prior ED visit and Prior labs Discharge Plan Triage Chief Complaint: Hypertension ED Provider: Laureano Sheridan Dx/Rx/DC Orders Clinical Impression: Hypertension, Viral URI, Anxiety Instructions: ED High Blood Pressure Hypertension, ED URI, Viral, No Abx (Adult) Prescriptions: No Action cholecalciferol (vitamin D3) 1,250 mcg (50,000 unit) capsule 1,250 mcg PO QWEEK simvastatin 40 mg tablet 20 mg PO QHS furosemide 40 mg tablet 40 mg PO .PRN PRN (Reason: edema) Qty: 30 0RF Patient Comments: pt has it at home, but does not take it benzonatate 100 mg capsule 200 mg PO TID PRN amoxicillin-pot clavulanate 875-125 mg tablet 1 tab PO BID Primary Care Provider: Yvonne Velez Referrals: Yvonne Velez, [Primary Care Provider] - As Needed Activity Restrictions/Additional Instructions: I think you have a viral respiratory infection. You do not need the antibiotic for that. Personally I would stop the Augmentin antibiotic the urgent care put you on. I would treat this with fluids and rest. Tylenol for body aches. Continue your current blood pressure medication. Log your blood pressures twice daily and follow-up with your primary care physician Dr. Nighat Doan to reevaluate your blood pressures and see if you need to adjust your medications. We do not need to lower your blood pressure today. Your exam is normal. We do not need to do any further testing. Print Language: [place]orese Disposition Disposition: Home, Self Care
[2024-03-29 03:19] VITALS: BP 159/94; PULSE 82; RESP 16; TEMP 36.8; O2SAT 95
== END 2024-03-29 03:37 | disposition home or self-care (01) ==
PROVIDERS: Emergency Provider Emergency Medicine; PCP Internal Medicine; Visit Provider Emergency Medicine
DX: I10 Essential (primary) hypertension (principal); J06.9 Acute upper respiratory infection, unspecified; F41.9 Anxiety disorder, unspecified; Z63.6 Dependent relative needing care at home; Z79.899 Other long term (current) drug therapy; Z87.891 Personal history of nicotine dependence
CPT/HCPCS: 99284

== ENCOUNTER 2024-04-05 16:17 | Emergency (ER) | payer MEDICARE, SELFPAY ==
[2024-04-05 16:18] VITALS: BP 171/65; PULSE 81; RESP 22; TEMP 36.6; O2SAT 98; BMI 30.2
[2024-04-05 16:48] VITALS: O2SAT 96
[2024-04-05 17:21] LABS: Anion Gap 6 (5-15); BUN 17 mg/dL (7-18); BUN/Creat Ratio 15.5 RATIO (10-20); Calcium,Total 9.9 mg/dL (8.5-10.1); Chloride 106 mmol/L (98-107); EST Glomerular Filtration Rate 51 mL/min (>60); Est Glom Filt Rate - Afr Amer 61 mL/min (>60); Estimated Creatinine Clearance 36.55 ml/min; Glucose 127 mg/dL (74-106); Potassium 4.5 mmol/L (3.5-5.1); Sodium Level 135 mmol/L (136-145)
--- NOTE | 2024-04-05 17:44 | EX.ED.DYSGE1 ---
HPI History of Present Illness Chief Complaint: Shortness of Breath Detail of Chief Complaint: Patient's chief complaint is shortness of breath. Sent for evaluation of d Informant: patient Onset/Context/Timing Onset: Weeks Context: Gradual Onset Timing: Continuous and Waxes and wanes Quality: Shortness of breath and decreased U/O x 48 hours Location: Respiratory and urologic Current Severity: Moderate Maximum Severity: Moderate Worsened by: Nothing Relieved by: nothing Associated Symptoms Associated Symptoms: no other complaints. Narrative Narrative: Patient is an 79-year-old female with history of hyperlipidemia, obesity, essential hypertension, dyspnea on exertion, abnormal EKG, by lateral lower extremity swelling. She states she normally does not have swelling and inform me that the reason there are mireles is because her socks are made of elastic and tight. Patient denies orthopnea. Patient denies chest discomfort at rest, with change in position or activity. Patient denies nausea or vomiting. Patient denies black or maroon-colored stool. Patient reports decreased urine output for the past 48 hours. She states she normally goes several times is only gone twice today. She went to the [place] cardiology office for Lasix. She has not taken her Lasix since . Prior similar symptoms: Yes (Per review of old records) Recent Illness/Hospitalization: No PFSH [facility] Medical History Decreased urine output Bilateral lower extremity edema Throat discomfort Left ventricular diastolic dysfunction Essential hypertension Obesity Osteoporosis Anxiety Hyperlipidemia Home Medications ?Medication ?Instructions ?Recorded ?Last Taken ?Type cholecalciferol (vitamin D3) 1,250 1,250 mcg PO QWEEK 03/04/22 Unknown History mcg (50,000 unit) capsule simvastatin 40 mg tablet 20 mg PO QHS 03/04/22 Unknown History furosemide 40 mg tablet 40 mg PO .PRN PRN edema #30 tabs 04/05/24 Unknown Rx losartan 50 mg tablet 25 mg PO 04/05/24 Unknown History Allergy/AdvReac Type Severity Reaction Status Date / Time ibuprofen Allergy Anaphylaxis Verified 04/05/24 16:17 Iodinated Contrast Media Allergy seizure Verified 04/05/24 16:17 sulfamethoxazole (From AdvReac thrush, Verified 04/05/24 16:17 Bactrim) muscle pain trimethoprim (From Bactrim) AdvReac thrush, Verified 04/05/24 16:17 muscle pain Family History Other Breast cancer Cancer Lung cancer Surgical History History of hysterectomy History of tonsillectomy Social History adopted: No Smoking Status: Former smoker how long ago did patient quit smoking: approx 35 years ago alcohol intake: never substance use type: does not use caffeine: Yes Type: coffee Number of servings: 1 ROS ROS ED Constitutional Constitutional ED: Denies chills, fever(s), subjective or sweats Eyes Eyes: Denies blurry vision or change in vision Cardiovascular Cardiovascular: Denies chest pain, orthopnea, palpitations, paroxysmal nocturnal dyspnea or racing heartbeat Respiratory/Chest Respiratory/Chest: Denies cough, dyspnea, dyspnea on exertion, orthopnea or paroxysmal nocturnal dyspnea Gastrointestinal Gastrointestinal: Denies abdominal pain, diarrhea, nausea or vomiting Genitourinary Genitourinary ED: Reports other Details: Decreased urine output ; Denies dysuria, hematuria or urinary frequency Musculoskeletal Musculoskeletal: Denies arthralgias or myalgias Integumentary Denies rash Neurologic Neurologic: Denies headache(s), paresthesias or weakness Hematologic/Lymphatic Hematologic/Lymphatic: Reports systems reviewed and no addt'l complaints, except as documented EXAM Physical Exam Const Vital Signs: 04/05/24 16:18 04/05/24 16:48 Temperature 97.9 F Temperature Source Temporal Pulse Rate 81 Respiratory Rate 22 H Respiratory Effort Normal Respiratory Depth Normal Respiratory Pattern Normal Blood Pressure 171/65 H Blood Pressure Mean 100 Pulse Ox 98 Oxygen Delivery Method Room Air Room Air Positive well nourished and well developed General Appearance ED: well developed and NAD; Negative for cyanotic, diaphoretic or pallor HEENT Reports moist mucous membranes HEENT Narrative: Head is atraumatic normocephalic. Ears normal. Nares patent Eyes PERRL and EOMs intact bilaterally General Eye ED: Negative for pale conjunctiva or scleral icterus Neck no lymphadenopathy, supple and no JVD Chest Wall inspection of chest normal and palpation of chest normal Resp normal respiratory effort and clear to auscultation bilaterally Cardio regular rate, regular rhythm, S1 normal heart sound, S2 normal heart sound and no murmurs GI normal to inspection, nondistended, normoactive bowel sounds, non-tender, non-distended and no masses; Negative for hepatosplenomegaly Auscultation: normoactive bowel sounds Palpation: soft Back/Spine no CVA tenderness Extremity normal to inspection Extremity Narrative: 2 mm pitting edema General Extremety ED: Yes edema; Negative for tenderness or other findings General Extremity: edema; Negative for other findings Neuro oriented x3, CN's II-XII intact bilaterally and no sensory deficits noted Sensorium / Orientation: alert Psych mental status grossly normal Skin no rashes or lesions noted, no wounds and skin turgor normal General Skin Exam: Negative for jaundice or pallor MDM MDM MDM Narrative Medical decision making narrative: Since patient's main complaint is dyspnea and decreased urine output CBC was obtained to assess white count and rule out anemia. Electrolyte panel was obtained to assess renal function, electrolytes CO2 anion gap. Reviewing prior record indicates patient had dyspnea with activity in the past. She is also had edema of the lower extremities. And apparently she has reported decreased urine output in the past as well. History & Record Review Additional record(s) reviewed:: Prior outpatient record, Prior ED visit and Prior labs Lab Data Attestation: I reviewed the patient's lab results. Lab results narrative: CBC is unremarkable. Basic metabolic panel is unremarkable. Sodium is 135 and creatinine cellulite 1.10 with an estimated GFR of 51.Creatinine on October 15, 2022 was 1.43 with an estimated GFR of 38. Today's laboratory results are an improvement. Labs: Laboratory Results - last 24 hr 04/05/24 04/05/24 04/05/24 16:45 16:45 17:30 WBC Cancelled 4.4 Corrected WBC Cancelled RBC Cancelled 4.04 L Hgb Cancelled 12.2 Hct Cancelled 37.2 MCV Cancelled 92.1 MCH Cancelled 30.2 MCHC Cancelled 32.8 RDW Std Deviation Cancelled 42.0 RDW Coeff of Gladys Cancelled 12.3 Plt Count Cancelled 202 MPV Cancelled 10.6 Immature Gran % (Auto) Cancelled 0.200 Neut % (Auto) Cancelled 68.5 Lymph % (Auto) Cancelled 19.2 [place] % (Auto) Cancelled 10.7 H Eos % (Auto) Cancelled 0.7 Baso % (Auto) Cancelled 0.7 Absolute Neuts (auto) Cancelled 3.0 Absolute Lymphs (auto) Cancelled 0.84 Total Counted Cancelled Neutrophils % (Manual) Cancelled Band Neutrophils % Cancelled Lymphocytes % (Manual) Cancelled Monocytes % (Manual) Cancelled Eosinophils % (Manual) Cancelled Basophils % (Manual) Cancelled Metamyelocytes % Cancelled Myelocytes % Cancelled Promyelocytes % Cancelled Blast Cells % Cancelled Plasma Cell % (Manual) Cancelled Other Cells % Cancelled Nucleated RBC % Cancelled 0 Nucleated RBCs/100 WBC Cancelled Differential Comment Cancelled Diff Path Review Cancelled Hypersegmented Neuts Cancelled Atypical Lymphocytes Cancelled Reactive Lymphocytes Cancelled Smudge Cells Cancelled Toxic Granulation Cancelled Toxic Vacuolation Cancelled Dohle Bodies Cancelled [place] Rods Cancelled Platelet Estimate Cancelled Plt Morphology Comment Cancelled RBC Morphology Cancelled Cancelled Polychromasia Cancelled Hypochromasia Cancelled Basophilic Stippling Cancelled Anisocytosis Cancelled Microcytosis Cancelled Macrocytosis Cancelled Spherocytes Cancelled Sickle Cells Cancelled Target Cells Cancelled Tear Drop Cells Cancelled Ovalocytes Cancelled Stomatocytes Cancelled [place] Bodies Cancelled [place] Cells Cancelled Bite Cells Cancelled Crenated Cell Cancelled Acanthocytes (Spur) Cancelled Rouleaux Cancelled Schistocytes Cancelled Sodium 135 L Potassium 4.5 Chloride 106 Carbon Dioxide 23.0 Anion Gap 6 BUN 17 Creatinine 1.10 H Estim Creat Clear Calc 36.55 Est GFR (MDRD) Af Amer 61 Est GFR (MDRD) Non-Af 51 L BUN/Creatinine Ratio 15.5 Glucose 127 H Calcium 9.9 Treatment and Re-Evaluation :: Since patient has no evidence of endorgan dysfunction i.e. elevated creatinine BUN or electrolyte abnormality she was discharged to home. Discharge Plan Triage Chief Complaint: Shortness of Breath Other Complaint: Complaint ED Provider: Walter Scott Dx/Rx/DC Orders Clinical Impression: Elevated serum creatinine, Hyperlipidemia, Essential hypertension, HOLGUIN (dyspnea on exertion), Decreased urine output, Pedal edema Instructions: ED Renal Insufficiency Prescriptions: No Action cholecalciferol (vitamin D3) 1,250 mcg (50,000 unit) capsule 1,250 mcg PO QWEEK simvastatin 40 mg tablet 20 mg PO QHS losartan 50 mg tablet 25 mg PO furosemide 40 mg tablet 40 mg PO .PRN PRN (Reason: edema) Qty: 30 0RF Patient Comments: pt has it at home, but does not take it Primary Care Provider: Yvonne Velez Referrals: Yvonne Velez, [Primary Care Provider] - As Needed Print Language: Croatian Disposition Disposition: Home, Self Care
[2024-04-05 17:57] LABS: Absolute Lymphocyte Count 0.84 X10^3/uL (0.83-4.51); Basophil# 0.03 X10^3/uL; Basophil% 0.7 % (0-1); Eosinophil# 0.03 X10^3/uL; Eosinophils% 0.7 % (0-5); Hematocrit 37.2 % (37-47); Hemoglobin 12.2 g/dL (12.0-15.0); Lymphocyte # 0.84 X10^3/ul (0.83-4.51); Lymphocyte % 19.2 % (19-41); Mean Corp Hgb Conc 32.8 g/dL (32-36); Mean Corpuscular Hgb 30.2 pg (27.0-32.0); Mean Corpuscular Volume 92.1 fL (81-99); Mean Platelet Vol. 10.6 fl (6.2-12.0); Monocyte# 0.47 X10^3/uL; Monocyte% 10.7 % (0-10); NRBC Flagged by Analyzer 0 % (0-5); Neutrophil % 68.5 % (47-70); Platelet Count 202 K/mm3 (150-450); RBC Distribution Width CV 12.3 % (11.6-14.6); Red Blood Count 4.04 M/mm3 (4.2-5.4); White Blood Count 4.4 K/mm3 (4.4-11.0)
[2024-04-05 18:17] VITALS: PULSE 61; RESP 17; O2SAT 97
[2024-04-05 18:33] VITALS: BP 171/65; PULSE 61; RESP 17; TEMP 36.6; O2SAT 97
== END 2024-04-05 18:38 | disposition home or self-care (01) ==
PROVIDERS: Emergency Provider Emergency Medicine; PCP Internal Medicine; Visit Provider Emergency Medicine
DX: R79.89 Other specified abnormal findings of blood chemistry (principal); E78.5 Hyperlipidemia, unspecified; R06.09 Other forms of dyspnea; R60.0 Localized edema; Z87.891 Personal history of nicotine dependence
CPT/HCPCS: 80048; 85025; 99284; A4216

== ENCOUNTER → 2024-08-03 | Outpatient (CLI) | payer MEDICARE, SELFPAY ==
--- NOTE | 2024-08-03 12:56 | BI_ITS ---
EXAM: SCRN MAMM (CAD)W/EL BILAT 08/03/2024 CLINICAL HISTORY: F, Age 79 y/o , SCREENING TECHNIQUE: Bilateral screening digital breast tomosynthesis with 2D and 3D images. Computer aided detection. COMPARISON: Prior exam(s) dated 07/20/2023, 04/10/2020. FINDINGS: TISSUE DENSITY: The breast tissue is heterogenously dense, which may obscure small masses. The mammogram demonstrates that the patient has dense breasts. Supplemental screening with whole breast ultrasound or MRI may be considered for further evaluation.. Bilateral Breast Mammographic Findings: There is an asymmetry in the inferior left breast at middle depth visualized on the MLO view. No significant masses, calcifications or other abnormalities are identified in the right breast. BI/SCRN MAMM (CAD)W/EL BILAT IMPRESSION: The asymmetry in the inferior left breast at middle depth visualized on the MLO view requires further evaluation. Recommend diagnostic mammogram of the left breast and ultrasound on the day of diagnostic if indicated. Right Breast: BIRADS 1 NEGATIVE. Left Breast: BIRADS 0 Incomplete: Need additional imaging evaluation and/or pr ior mammograms for comparison.. OVERALL FINAL ASSESSMENT: BIRADS 0 Incomplete: Need additional imaging evaluati on and/or prior mammograms for comparison.. RECOMMENDATION: Recommendation: Additional projections. A letter with findings and recommendations will be mailed to the patient. Reading Location: [facility]
--- NOTE | 2024-08-03 12:59 | BD_ITS ---
PROCEDURE: DEXA BONE DENSITY STUDY 08/03/2024 REASON FOR EXAM: F, age 79 y/o . Postmenopausal. TECHNIQUE: DXA scan of the lumbar spine and both hips, using make and model. REFERENCE LINKS: ISCD Adult Positions COMPARISON: Comparison is made with prior study dated March 10, 2019. FINDINGS: BMD and T-SCORES Lumbar spine: 0.653 g/cm2, T-Score -3.6 L1 through L4 Change from prior: Loss of 5.4% Left femoral neck: 0 point 460 g/cm2, T-Score -3.5 Femoral neck comparison data not recommended for monitoring change. Left total hip: 0.5 8 8 g/cm2, T-Score -2.9 Change from prior: Loss of 5.4% Right femoral neck: 0.515 g/cm2, T-Score -3.0 Femoral neck comparison data not recommended for monitoring change. Right total hip: 0.632 g/cm2, T-Score -2.5 Change from prior: Loss of 3.1% Fracture Risk Calculation: FRAX (10-year Fracture Risk) Score: FRAX scores should never be reported in a patient with osteoporosis on DEXA or for any patient that is on bone medication. The patient doesmeet the pharmacological treatment recommendations for prevention of osteoporosis BD/Dexa Bone Density Study IMPRESSION: OSTEOPOROSIS. Recommend follow-up as clinically warranted. Reading Location: [place] [id number]
== END | disposition home or self-care (01) ==
LOC: OPBD 12:54
PROVIDERS: PCP Internal Medicine; Referring Provider Internal Medicine; Visit Provider Internal Medicine
DX: Z13.820 Encounter for screening for osteoporosis (principal); Z78.0 Asymptomatic menopausal state; Z12.31 Encounter for screening mammogram for malignant neoplasm of breast
CPT/HCPCS: 77063; 77067; 77080

== ENCOUNTER → 2024-08-17 | Outpatient (CLI) | payer MEDICARE, SELFPAY ==
--- NOTE | 2024-08-17 13:54 | US_ITS ---
EXAM: DIAG MAMM W/CAD, UNILAT; BREAST LIMITED UNILATERAL; LT BRST UNILAT EL ADD ON 08/17/2024 CLINICAL HISTORY: 79-year-old female presents for finding in the left breast on examination of 08/03/2024. Family history of breast cancer in her sister at age 63 TECHNIQUE: Left diagnostic digital breast tomosynthesis with 2D and 3D images. Computer aided detection. Also, targeted left breast ultrasound was performed. COMPARISON: Prior exam(s) dated 08/03/2024, 07/20/2023, 05/06/2022. FINDINGS: TISSUE DENSITY: The breast tissue is heterogenously dense, which may obscure small masses. The mammogram demonstrates that the patient has dense breasts. Supplemental screening with whole breast ultrasound or MRI may be considered for further evaluation. Left breast mammogram: Follow-up examination performed for the asymmetry in the left breast visualized on the examination of 08/03/2024. On the present examination, the asymmetry in the inferior left breast at middle depth does not persist. This area likely represents benign overlapping fibroglandular tissues. Left breast ultrasound: Ultrasound performed of the inferior left breast demonstrates no suspicious sonographic findings. There are no solid masses or abnormal cystic elements. US/Breast Limited Unilateral IMPRESSION: There is no evidence of malignancy in the left breast. Left Breast: BIRADS 1 NEGATIVE. OVERALL FINAL ASSESSMENT: BIRADS 1 NEGATIVE. RECOMMENDATION: Routine annual follow-up in 1 Year A letter with findings and recommendations will be mailed to the patient. Reading Location: [id number]
== END | disposition home or self-care (01) ==
PROVIDERS: PCP Internal Medicine; Referring Provider Internal Medicine; Visit Provider Internal Medicine
DX: R92.8 Other abnormal and inconclusive findings on diagnostic imaging of breast (principal)
CPT/HCPCS: 76642; 77061; 77065; G0279